=== PATIENT | female | born 1965 | race Caucasian/White ===

== ENCOUNTER 2016-12-20 18:43 | Inpatient (IN) | payer BC ==
[~2016-12-20] VITALS: Ht 170.2 cm; Wt 61.9 kg
--- NOTE | 2016-12-20 19:00 | NUR ---
PT TO ROOM PER W/C
--- NOTE | 2016-12-20 19:11 | NUR ---
INTRODUCED SELF TO PT. DISCCUSED PLAN OF CARE. VERBALIZED UNDERSTANDING. PT CHANGED TO GOWN. CALL LIGHT GIVEN.
[2016-12-20 20:14] LABS: HEMOGLOBIN 16.1 g/dl (12.0-16.0); IMMATURE GRANULOCYTES 0.4 % (0.0-1.0); MEAN CELL VOLUME 100.7 fL CALC (80.0-100.0); MEAN CORPUSCULAR HGB CONC 35.8 g/L CALC (32.0-36.0); NEUT# 6.44 thou/uL (2.00-7.15); RED BLOOD COUNT 4.47 mill/uL (4.20-5.60); RED CELL DISTRI WIDTH 13.2 % (11.5-15.5)
[2016-12-20 20:32] LABS: ALBUMIN 3.1 g/dL (3.2-5.0); ALKALINE PHOSPHATASE 144 u/l (38-126); ANION GAP 13 (6-22 (CALC)); BILIRUBIN, TOTAL 1.6 mg/dL (0.0-1.4); BUN 6 mg/dL (7-17); BUN/CREATININE RATIO 8 (12-20 (CALC)); CALCIUM 9.1 mg/dL (8.4-10.2); CARBON DIOXIDE 26 mmol/l (22-30); CHLORIDE 93 mmol/l (95-108); CREATININE 0.7 mg/dL (0.5-1.0); GFR > 60 ML/MIN (>=60 (CALC)); GFR FOR AFR.AMER. > 60 ML/MIN (>=60 (CALC)); GLUCOSE 116 mg/dL (65-105); POTASSIUM 3.6 mmol/l (3.5-5.1); SGOT/AST 47 u/l (14-36); SGPT/ALT 40 u/l (9-52); SODIUM 128 mmol/l (137-146); TOTAL PROTEIN 6.6 g/dL (6.3-8.2)
--- NOTE | 2016-12-20 20:46 | NUR ---
PT RESTING ON STRETCHER. INFORMED OF PENDING LAB/RADIOLOGY RESULTS. VERBALIZED UNDERSTANDING. DENIES ANY NEEDS AT THIS TIME.
--- NOTE | 2016-12-20 21:10 | NUR ---
DR MOROCHO B/S SPEAKING WITH PT REGARDING RESULTS.
--- NOTE | 2016-12-20 21:33 | NUR ---
IN ROOM TO PLACE LARSON CATHETER. PT TOLERATED WELL. + URINE RETURN. CLEAR YELLOW. CALL LIGHT GIVEN. PT DECLINING PAIN MEDICATION AT THIS TIME.
--- NOTE | 2016-12-20 22:14 | NUR ---
ATTEMPTED TO CALL REPORT TO MS. NURSE UNAVAILABLE.
--- NOTE | 2016-12-20 22:25 | NUR ---
REPORT GIVEN TO KALE SHAFFER.
[2016-12-20 22:39] LABS: URINE BILIRUBIN - DIPSTICK NEGATIVE (NEGATIVE); URINE BLOOD DIPSTICK TRACE-INTACT (NEGATIVE); URINE CLARITY SLIGHT CLOUDY; URINE COLOR YELLOW; URINE GLUCOSE - DIPSTICK NEGATIVE (NEGATIVE); URINE KETONE NEGATIVE (NEGATIVE); URINE LEUK ESTERASE NEGATIVE (NEGATIVE); URINE NITRITE - DIPSTICK NEGATIVE (Negative); URINE PH 6.5 (4.5-8.0); URINE PROTEIN - DIPSTICK NEGATIVE (NEG-TRACE); URINE SPECIFIC GRAVITY <=1.005; URINE UROBILINOGEN - DIPSTICK 0.2 E.U./dL (0.2)
[2016-12-20 22:39] LABS: ETHYL ALCOHOL < 10 mg/dl (0-30)
--- NOTE | 2016-12-20 22:40 | NUR ---
PT MEDICATED FOR PAIN AND NS INFUSING TO LAC W/O DIFFICULTY.
--- NOTE | 2016-12-20 22:40 | NUR ---
PT TRANSFERRED TO FLOOR VIA STRETCHER IN STABLE CONDITION ACCOMPANIED BY PHIL FERNÁNDEZ;PT RE-POSITIONED HERSELF INTO HOSPITAL BED WITHOUT INCIDENT;PT ORIENTED TO ROOM AND CALL LIGHT SYSTEM AND VERBALIZES UNDERSTANDING;A&O X3;VS AND WT OBTAINED;RESPIRATIONS EVEN AND UNLABORED ON RA,CLEAR LUNG SOUNDS NOTED;ASSESSMENT COMPLETED;PT REPORTS PAIN LEVEL HAS NOW DECREASED TO A 3/10 ON THE PAIN SCALE;PT EDUCATED ON PAIN REPORTING;ABSCESS NOTED TO COCCYX AREA,SKIN REDDENED BUT INTACT;PHOTOGRAPH OBTAINED AND PLACED IN CHART;#22G TO LAC INFUSING NS @ 999ML/HR WELL;#18F LARSON CATHETER NOTED DRAINING YELLOW/SLIGHT CLOUDY URINE WITH LEG STRAP IN PLACE;PT EDUCATED ON NPO DIET AND VERBALIZES UNDERSTANDING;SAFETY PRECAUTIONS REINFORCED AND PT EDUCATED TO CALL FOR ASSISTANCE IF NEEDED;FALL PRECAUTIONS IN PLACE WITH CALL LIGHT IN REACH;WILL CONTINUE TO MONITOR
[2016-12-20 22:41] LABS: COCAINE NEGATIVE (NEGATIVE)
[2016-12-20 22:42] LABS: BARBITURATES NEGATIVE (NEGATIVE); METHADONE NEGATIVE (NEGATIVE); OXCYCODONE NEGATIVE (NEGATIVE); TETRAHYDROCANNABIONOL NEGATIVE (NEGATIVE); TRICYLIC ANTIDEPRESSANTS NEGATIVE (NEGATIVE)
--- NOTE | 2016-12-20 22:45 | NUR ---
Admission Note Report Given to: KALE SHAFFER Transported by: Wheelchair X Stretcher Transported with: X Nurse Transporter X Patent IV O2 Reimbursement Manager PT TRANSPORTED TO [place] [address] VIA STRETCHER.
[2016-12-20 22:55] VITALS: BP 135/80
--- NOTE | 2016-12-20 23:50 | NUR ---
PT RESTING IN BED TALKING ON THE PHONE;IV SITE SECURED WITH COBAN;PT VOICES NO COMPLAINTS OR CONCERNS AND IS RE-EDUCATED ON NPO DIET;WILL CONTINUE TO MONITOR
--- NOTE | 2016-12-21 04:50 | NUR ---
LAB AT BEDSIDE;PT VERY GUARDED THIS MORNING;WHEN ASKED BY WRITTER IF PT IS ALRIGHT SHE STATES "IM NOT IN THE MOOD,IM NOT ALLOWED ANY SODA SO IM NOT A HAPPY CAMPER";PT OFFERED MOUTH SWABS BUT DECLINES;PT REPORTS NO PAIN AT THIS TIME;VS OBTAINED;LARSON CATHETER PATENT AND HANGING TO GRAVITY;LARSON EMPTIED OF 650CC OF YELLOW/CLOUDY URINE;PT REMAINS NPO;IV SITE INFUSING D5 LR @ 100ML/HR WELL;PT VOICES NO OTHER NEED AT THIS TIME;FALL PRECAUTIONS IN PLACE;WILL CONTINUE TO MONITOR
[2016-12-21 04:53] VITALS: BP 116/77
[2016-12-21 05:39] LABS: HEMATOCRIT 40.2 % (37.0-47.0); HEMOGLOBIN 13.9 g/dl (12.0-16.0); MEAN CELL VOLUME 101.8 fL CALC (80.0-100.0); MEAN CORPUSCULAR HGB 35.2 pG CALC (26.0-32.0); MEAN CORPUSCULAR HGB CONC 34.6 g/L CALC (32.0-36.0); RED BLOOD COUNT 3.95 mill/uL (4.20-5.60); RED CELL DISTRI WIDTH 13.3 % (11.5-15.5)
[2016-12-21 05:40] LABS: ALBUMIN 2.2 g/dL (3.2-5.0); ALKALINE PHOSPHATASE 98 u/l (38-126); ANION GAP 8 (6-22 (CALC)); BUN 4 mg/dL (7-17); BUN/CREATININE RATIO 8 (12-20 (CALC)); CALCIUM 8.4 mg/dL (8.4-10.2); CARBON DIOXIDE 28 mmol/l (22-30); CHLORIDE 101 mmol/l (95-108); CREATININE 0.6 mg/dL (0.5-1.0); GFR > 60 ML/MIN (>=60 (CALC)); GFR FOR AFR.AMER. > 60 ML/MIN (>=60 (CALC)); GLUCOSE 94 mg/dL (65-105); MAGNESIUM 1.5 mg/dL (1.6-2.3); POTASSIUM 2.6 mmol/l (3.5-5.1); SGOT/AST 23 u/l (14-36); SGPT/ALT 42 u/l (9-52); SODIUM 134 mmol/l (137-146); TOTAL PROTEIN 4.8 g/dL (6.3-8.2)
[2016-12-21 05:42] LABS: ACT PARTIAL THROMBO TIME 32.9 SECONDS (20.0-32.5); PROTHROMBIN TIME 10.6 SECONDS (9.0-12.5)
--- NOTE | 2016-12-21 07:00 | NUR ---
SHIFT CHANGE REPORT FROM JOCELYN SHAFFER AWAKE ALERT AND ORIENTED RESTING IN BED, C/O ACHING R. HIP PAIN AT 5/10 WHICH IS AGGRAVATED BY MOVEMENT AT THIS TIME, LARSON CATHETER IN PLACE WITH CLEAR YANNI URINE, IVF INFUSING, CALL MORALES IN REACH.
[2016-12-21 07:44] VITALS: BP 129/80
--- NOTE | 2016-12-21 08:07 | NUR ---
NIKI FROM OR CALLED, REPORTED SHE SPOKE TO DR OMER WHO INFORMED HER SURGICAL PROCEDURE WILL BE DONE AT 1930 TODAY AND ANESTHESIOLOGIST WILL CONSULT SOON. NO ORDERS RECEIVED FROM YET.
--- NOTE | 2016-12-21 09:30 | NUR ---
DR MURRELL AND HUY HERE ROUNDING WITH PT, THEY EXPLAINED PLAN OF CARE AND TREATMENT PLAN AND ALSO EDUCATED ON ALCOHOLISM AND TOBACCO USE/CESSATION.
--- NOTE | 2016-12-21 12:00 | NUR ---
RESTING IN BED, PAIN WELL CONTROLLED WITH ANALGESICS, ANESTHESIOLOGIST CONSULTED WITH PT, FAMLIY MEMBERS AT BEDSIDE, CALL MORALES IN REACH.
[2016-12-21 16:01] VITALS: BP 146/88
--- NOTE | 2016-12-21 18:25 | NUR ---
PEM FROM OR HERE TO RECEIVE PT AND TRANSFER TO OR, DENTURES (UPPER & LOWER) REMOVED, PLACED IN DENTURE CUP AND PLACED ON NIGHT STAND. PT ANXIOUS TO HAVE PROCEDURE DONE STATED.
--- NOTE | 2016-12-21 19:20 | NUR ---
REPORT RECEIVED FROM PHIL ATKINSON;PT CURRENTLY IN OR AT THIS TIME
[2016-12-22] VITALS (12 sets, daily range): BP systolic 107–147; BP diastolic 67–94
--- NOTE | 2016-12-22 00:05 | NUR ---
RECEIVED CALL FROM OR,PT SHOULD BE TRANSFERRED BACK TO FLOOR IN THE NEXT TEN MINS
--- NOTE | 2016-12-22 00:12 | NUR ---
PT ARRIVED TO FLOOR IN HOSPITAL BED ACCOMPANIED BY LARRY,OR STAFF;PT DROWSY BUT ORIENTED X3;PT REPORTS PAIN LEVEL TO BE 3/10 ON THE PAIN SCALE;I.S. AT BEDSIDE AND PT EDUCATED ON USE,GOAL SET TO 1500;LARSON CATHETER PATENT HANGING TO GRAVITY DRAINING DARK YELLOW/CLOUDY URINE;#20G TO RIGHT HAND INFUSING LR @100ML/WELL;#20G TO LAC FLUSHED AND PATENT;VS OBTAINED AND TO BE ASSESSED Q15MIN;RESPIRATIONS EVEN AND UNLABORED 02 ON @2L VIA NC;SCD TO LEFT LEG;ABDUCTOR PILLOW NOTED TO BE IN PLACE;DRESSING TO RIGHT HIP,CDI;ICE PACK APPLIED AND TO BE ALTERNATED EVERY 20 MINS;PT DENIES ANY NEEDS AT THIS TIME;PT EDUCATED TO CALL FOR ASSISTANCE IF NEEDED;CALL LIGHT IN REACH;WILL CONTINUE TO MONITOR
--- NOTE | 2016-12-22 02:35 | NUR ---
PT APPEARS TO BE SLEEPING WITH EYES CLOSED;NO S/S OF DISTRESS NOTED;IV FLUIDS INFUSING WELL;LARSON CATHETER PATENT;RESP EVEN AND UNLABORED ON 02;WILL CONTINUE TO MONITOR
--- NOTE | 2016-12-22 05:30 | NUR ---
PT LAYING IN SUPINE POSITION AWAKE WATCHING TV;PT DENIES ANY PAIN OR DISCOMFORTS;RESP EVEN AND UNLABORED;PT TOLERATING PO FLUIDS WELL THIS MORNING;LARSON CATHETER HANGING TO GRAVITY;SCD PLACED ON LEFT LEG,ABDUCTOR PILLOW NOTED;PT VOICES NO CONCERNS OR NEEDS AT THIS TIME;CALL LIGHT IN REACH;WILL CONTINUE TO MONITOR
[2016-12-22 05:59] LABS: HEMATOCRIT 34.2 % (37.0-47.0); HEMOGLOBIN 11.4 g/dl (12.0-16.0); IMMATURE GRANULOCYTES 0.3 % (0.0-1.0); MEAN CELL VOLUME 107.9 fL CALC (80.0-100.0); MEAN CORPUSCULAR HGB CONC 33.3 g/L CALC (32.0-36.0); NEUT# 4.18 thou/uL (2.00-7.15); RED BLOOD COUNT 3.17 mill/uL (4.20-5.60); RED CELL DISTRI WIDTH 13.5 % (11.5-15.5)
[2016-12-22 06:23] LABS: ANION GAP 6 (6-22 (CALC)); BUN 4 mg/dL (7-17); BUN/CREATININE RATIO 6 (12-20 (CALC)); CARBON DIOXIDE 28 mmol/l (22-30); CHLORIDE 105 mmol/l (95-108); CREATININE 0.6 mg/dL (0.5-1.0); GFR > 60 ML/MIN (>=60 (CALC)); GFR FOR AFR.AMER. > 60 ML/MIN (>=60 (CALC)); GLUCOSE 80 mg/dL (65-105); MAGNESIUM 1.6 mg/dL (1.6-2.3); POTASSIUM 4.2 mmol/l (3.5-5.1); SODIUM 135 mmol/l (137-146)
--- NOTE | 2016-12-22 07:00 | NUR ---
SHIFT CHANGE REPORT FROM JOCELYN SHAFFER AWAKE ALERT AND ORIENTED SITTING IN HIGH FOWLERS POSITION AND CONVERSING ON PHONE, REPORTS PAIN CONTROLLED WITH ANALGESICS, IVF INFUSING, WEDGE PILLOW IN PLACE BETWEEN LEGS, SCD IN PLACE, O2@ 2L VIA NC IN PLACE, EDUCATED ON USAGE OF IS WHEN REPORTED NO ONE SHOWED HER HOW TO USE IT. SHE DEMONSTRATED UNDERSTANDING BY USING IT CORRECTLY. LARSON CATHETER IN PLACE WITH CLEAR YANNI URINE, CALL MORALES IN REACH.
--- NOTE | 2016-12-22 09:38 | NUR ---
PT INFORMED OF PROCEDURE, LARSON CATHETER REMOVED, PROCEDURE TOLERATED WELL.
--- NOTE | 2016-12-22 16:09 | NUR ---
PATIENT IN BED WITH ABD PILLOW BETWEEN KNEES. SHE IS UNABLE TO REPEAT HER SHANNON PRECAUTIONS. OOB WITH V.C.'S FOR SAFE LE ADVANCEMENT. SIT TO STAND WITH CGA FOR AMB TO BR. BSC OVER TOILET, BUT PATIENT UNABLE TO URINATE. LARSON CATH REMOVED THIS AM. UPON RISING, BLOOD NOTED AT COCCYX. AMB TO CHAIR 6 FEET WITH CGA AND V.C.'S FOR STAND TO SIT MAINTAINING PRECAUTIONS. NSG INFORMED AND WILL BE IN TO EVALUATE PATIENT FOR SAME.
--- NOTE | 2016-12-22 16:15 | NUR ---
Patient reports doing well. Spoke to the patient regarding medications and side-effects. Talked about the risk of respiratory depression and constipation. Patient is not experiencing any side-effects and did not have any questions regarding medication.
--- NOTE | 2016-12-22 17:18 | NUR ---
FOLET REMOVED @ 0920, PT HAS HAD ADEQUATE AMOUNT ORAL FLUIDS, TRIED COUPLE TIMES TO URINATE BUT WITHOUT SUCCESS. BLADDER SCANNED AT THIS TIME = 60-190 ML, NO DISTENTION PALPATED OR OBSERVED, PT DENIES DISCOMFORT. JOSE CARLOS SON NOTIFIED, WILL CONTINUE TO MONITOR.
--- NOTE | 2016-12-22 17:56 | NUR ---
AGRICULTURAL EXTENSION OFFICER NOTIFIED OF BLADDER ELIMINATIOIN CONDITION, ORDERED TO BLADDER SCAN IF HAS NOT URINATED BY MIDNIGHT AND IF GREATER THAN 300ML TO PLACE LARSON CATHETER AND SHE WILL SEE PT IN AM.
--- NOTE | 2016-12-22 19:15 | NUR ---
PT SITTING UP IN BED EATING DINNER. PT IS ALERT AND ORIENTED. PERRLA. RESP ARE EVEN AND UNLABORED. LUNGS ARE CLEAR. HR REGULAR. PULSES PALPABLE THROUGHOUT. NO EDEMA NOTED. DRESSING TO R HIP CLEAN DRY AND INTACT. PT IS DRINKING. PT REPORTS THAT SHE DOES NOT HAVE TO URINATE AT THIS TIME. #20 RIGHT HAND AND #22 LAC. NO REDNESS OR EDEMA TO EITHER SITE. WILL CONTINUE TO MONITOR.
--- NOTE | 2016-12-22 20:00 | NUR ---
OFFERRED TOILETING. PT DENIES HAVING TO VOID AT THIS TIME.
--- NOTE | 2016-12-22 21:35 | NUR ---
OFFERRED TOILETING. PT DENIES HAVING TO VOID AT THIS TIME. ENCOURAGED PO FLUIDS
--- NOTE | 2016-12-22 23:11 | NUR ---
PT UP TO VOID. AMBULATED WITH WALKER TO RESTROOM. PT TOLERATED AMBULATION WELL. WILL CONTINUE TO MONITOR
--- NOTE | 2016-12-23 00:02 | NUR ---
PT SITTING UP IN BED WATCHING TV. DENIES PAIN AT THIS TIME. RESP ARE EVEN AND UNLABORED. NO CHANGE IN PT STATUS. WILL CONTINUE TO MONITOR.
--- NOTE | 2016-12-23 04:28 | NUR ---
PT ASSISTED UP TO VOID. PT STATES THAT SHE IS HAVING SOME PAIN AT THIS TIME 08/01. RESP ARE EVEN AND UNLABORED. PT AMBULATED WITH WALKER TO TOILET WITHOUT ANY DIFFICULTIES. WILL CONTINUE TO MONITOR.
[2016-12-23 05:21] VITALS: BP 147/96
[2016-12-23 05:36] LABS: HEMATOCRIT 29.2 % (37.0-47.0); HEMOGLOBIN 10.1 g/dl (12.0-16.0)
--- NOTE | 2016-12-23 07:00 | NUR ---
RECEIVED BEDSIDE REPORT FROM JOSE VILLARREAL. RESTING IN BED WITH EYES CLSOED, AWAKENS EASILY. RESPS EVEN AND UNLABORED ON ROOM AIR. DENIES PAIN OR DISCOMFORT. ABDUCTOR PILLOW IN PLACE BETWEEN KNEES. PLAN OF CARE DISCUSSED. SAFETY PRECAUTIONS REINFORCED. BED IN LOWEST POSITION WITH WHEELS LOCKED. CALL LIGHT WITHIN REACH. ENCOURAGED PT TO CALL FOR ANY NEEDS.
[2016-12-23 07:45] VITALS: BP 123/77
--- NOTE | 2016-12-23 09:00 | NUR ---
DR MURRELL IN WITH PT, NEW ORDERS RECEIVED.
--- NOTE | 2016-12-23 09:30 | NUR ---
DRESSING TO RIGHT HIP REMOVED. SCANT AMT BROWN COLORED DRAINAGE NOTED ON DRESSING. DERMABOND INTACT. BRUISING NOTED TO RIGHT HIP. NO REDNESS NOTED. PT TOLERATED WELL. CALL LIGHT WITHIN REACH. WILL CONTINUE TO MONITOR.
--- NOTE | 2016-12-23 11:57 | NUR ---
PATIENT REFUSED MORNING P.T. SHE WAS UP AMB TO BR WITH O.T. THIS AM FOR HER INITIAL EVAL. REQUESTS WE RETURN AFTER LUNCH.
[2016-12-23] MEDS ORDERED: ASPIRIN EC325 MG PO (12:00)
[2016-12-23] MEDS ORDERED: PROTONIX40 M2 PO (12:00)
[2016-12-23] MEDS ORDERED: LIBRIUM25 M1 PO (12:00)
[2016-12-23] MEDS ORDERED: PERCOCET 10/31 COMBO PO (12:00)
[2016-12-23] MEDS ORDERED: TAB-A-VITE W/1 COMBO PO (12:00)
[2016-12-23] MEDS ORDERED: VITAMIN D2000 UNI2 PO (12:00)
--- NOTE | 2016-12-23 12:28 | NUR ---
AMBULATING IN HALLWAY WITH PHYSICAL THERAPY.
--- NOTE | 2016-12-23 12:50 | NUR ---
RESTING IN SEMI FOWLERS WITH ABDUCTOR PILLOW BETWEEN KNEES. RESPS EVEN AND UNLABORED ON ROOM AIR. MEDICATED WITH PERCOCET PO FOR C/O 5/10 RIGHT HIP PAIN. CALL LIGHT WITHIN REACH. ENCOURAGED TO CALL FOR NEEDS.
--- NOTE | 2016-12-23 13:19 | NUR ---
PATIENT IS UP IN BR WITH TRANSPORTER RADIOLOGY. WHEN SHE WAS DONE, SHE PULLED CALL MORALES AND WAS ABLE TO STAND WITH GRAB BAR MAINTAINING PRECAUTIONS. GT X 1 TO AMB IN [place] 85 FEET WITHOUT SHUFFLING, LOB USING 2 POINT GAIT PATTERN. PATIENT HAD C/O PAIN FROM WALKING, BUT DEMONSTRATED GOOD KNOWLEDGE OF HIP PRECAUTIONS TODAY. STAND TO SIT TO SUPINE INDEP WITH SBA. ABD PAD REPLACED CALL BUTTON W/I REACH, LUNCH TRAY WELL.
[2016-12-23 15:31] VITALS: BP 122/74
--- NOTE | 2016-12-23 16:51 | NUR ---
RESTING IN BED WITH EYES CLOSED, AWAKENS EASILY. RESPS EVEN AND UNLABORED ON ROOM AIR. VOICES NO NEEDS AT THIS TIME. CALL LIGHT WITHIN REACH. WILL CONTINUE TO MONITOR.
--- NOTE | 2016-12-23 18:44 | NUR ---
Discharge instructions given. Patient verbalizes understanding of same. Discharged in stable condition via Medical Transport to *Other with *Other. All belongings sent with pt. [facility]
--- NOTE | 2016-12-23 18:56 | NUR ---
NURSE TO NURSE REPORT CALLED TO ERASTO HENLEY AT [facility].
== END 2016-12-23 18:43 | DRG 470 ==
LOC: ED 18:43 → ED-I 21:44 → ED 22:05 → MS2 22:06
PROVIDERS: Emergency Medicine; Nurse Practitioner Family; Orthopaedic Surgery; ADMIT Internal Medicine; ATTEND Internal Medicine
PROC: 0T9B70Z Drainage of Bladder with Drainage Device, Via Natural or Artificial Opening (ICD-10-PCS; 2016-12-20)
PROC: 0SRR0JZ Replacement of Right Hip Joint, Femoral Surface with Synthetic Substitute, Open Approach (ICD-10-PCS; principal; 2016-12-21)
DX: S72.001A Fracture of unspecified part of neck of right femur, initial encounter for closed fracture (principal); E87.1 Hypo-osmolality and hyponatremia; F17.210 Nicotine dependence, cigarettes, uncomplicated; E83.42 Hypomagnesemia; E87.6 Hypokalemia; E55.9 Vitamin D deficiency, unspecified; F10.20 Alcohol dependence, uncomplicated; G62.1 Alcoholic polyneuropathy; K64.9 Unspecified hemorrhoids; Y92.512 Supermarket, store or market as the place of occurrence of the external cause; W19.XXXA Unspecified fall, initial encounter
CPT/HCPCS: J1650; J2710